=== PATIENT | female | born 1965 | race Two or more races ===

== ENCOUNTER 2024-08-08 05:38 | Day surgery (SDC) | payer OTHER ==
[2024-08-07 10:57] VITALS: BP 102/72
[~2024-08-08] VITALS: Ht 165.1 cm; Wt 70.8 kg
[~2024-08-08 05:38] MED LIST: ATIVAN1 M1 PO; FOSAMAX70 MG PO; LOSARTAN-HCTZ1 EACH PO; MILLIPRED5 MG PO; ROSUVASTATIN CA10 MG PO; SYNTHROID100 MCG PO; WELLBUTRIN XL150 M1 PO; ZETIA10 MG PO
[2024-08-08] MEDS ORDERED: CEFAZOLIN SODIUM 1,000 MG VIAL ONE (10:04)
[2024-08-08] MEDS ORDERED: CHLORHEXIDINE GLUCONATE 120 ML BOTTLE TOP ONE (12:19)
[2024-08-08] MEDS ORDERED: POVIDONE-IODINE SCRUB 118 ML BOTT TOP ONE (12:19)
== END 2024-08-08 17:55 | disposition home or self-care (01) ==
LOC: CIR.AMB 05:38
PROVIDERS: ATTEND Surgery
DX: C50.412 Malignant neoplasm of upper-outer quadrant of left female breast (principal); R59.0 Localized enlarged lymph nodes